=== PATIENT | female | born 1975 | race Caucasian/White ===

== ENCOUNTER 2019-12-25 07:52 | Emergency (ER) | payer SELFPAY ==
[~2019-12-25] VITALS: Ht 160 cm; Wt 54.4 kg
--- NOTE | 2019-12-25 08:15 | NUR ---
ED Nurse Note: Patient presents to ER due to swelling, tenderness and redness over RLE radiating to right thigh after heroin injection. Denies any fever, chills or N/V. Patient awake, alert, oriented x 4. Regular, unlabored breathing noted. Blue dots on the right thigh noted. patient denie any SOB, dyspnea or CP. Placed patient in hospital gown. Bed in lowest position.
[2019-12-25] MEDS ORDERED: Clindamycin 900mg 50 ML IV ONE (08:30)
[2019-12-25] MEDS ORDERED: Ketorolac 30mg Inj IV ONE (08:30)
--- NOTE | 2019-12-25 08:35 | Emergency Room Report ---
History of Present Illness General Chief Complaint: RLE swelling Source: Patient Present Illness HPI Patient is a 44-year-old female past medical history of heroin abuse who presents to the ER complaining of swelling. Patient is unclear as to when it started but states that she does inject into her legs. She denies any fever or chills. Patient complains of pain to the extremity. She denies any chest pain or shortness of breath. She denies any abdominal pain, nausea or vomiting. She denies any other trauma. Allergies: Coded Allergies: No Known Allergies (Unverified , 12/25/19) Patient History Reviewed Nursing Documentation: PMH: Agreed; PSxH: Agreed Review of Systems All Other Systems: negative except mentioned in HPI Physical Exam Sp02 EP Interpretation: reviewed, normal General Appearance: no apparent distress, alert, GCS 15, non-toxic Head: normocephalic, atraumatic Eyes: bilateral eye normal inspection, bilateral eye PERRL ENT: hearing grossly normal, normal pharynx, no angioedema, normal voice Neck: full range of motion, supple/symm/no masses Respiratory: chest non-tender, lungs clear, normal breath sounds, speaking full sentences Cardiovascular #1: regular rate, rhythm, no edema Gastrointestinal: normal bowel sounds, non tender, soft, non-distended, no guarding, no rebound Rectal: deferred Musculoskeletal: other - Right lower extremity diffuse swelling with erythema below the knee and tenderness to palpation bilateral track resendiz on her lower extremities. 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 Due to a high probability of clinically significant, life threatening deterioration, the patient required my highest level of preparedness to intervene emergently and I personally spent this critical care time directly and personally managing the patient. This critical care time included obtaining a history; examining the patient; pulse oximetry; ordering and review of studies; arranging urgent treatment with development of a management plan; evaluation of patient's response to treatment; frequent reassessment; and, discussions with other providers.This critical care time was performed to assess and manage the high probability of imminent, life- threatening deterioration that could result in multi-organ failure. It was exclusive of separately billable procedures and treating other patients and teaching time. Please see MDM section and the rest of the note for further information on patient assessment and treatment. Medical Decision Making Diagnostic Impression: Primary Impression: IVDU (intravenous drug user) Additional Impressions: Cellulitis Anemia ER Course Patient given IV fluids. Patient started on IV clindamycin. Patient's ultrasound demonstrates no evidence for DVT. CT of the leg demonstrates some subcutaneous gas could be from injection site or abscess. Patient transfused 1 unit of packed red blood cells. Patient is refusing admission. She is signing out AMA. I will discharge her with a prescription for Bactrim and Keflex. The patient is of adult age and has sound mind with no evidence of altered mental status suggesting metabolic or infections etiologies. I explained in layman's terms the risk of leaving against medical advise including and significant comorbidity. The patient was given reasonable options. This was explained in front of the patient and the bedside nurse BREN Avila. The AMA for was signed and witnessed by a nurse and the patient. EKG Diagnostic Results Troponin ordered: No - Ordered for possible sepsis EKG Time: 08:38 EP Interpretation: Ela Renner MD Rate: normal - 78 bpm Rhythm: NSR ST Segments: no acute changes ASA given to the pt in ED: No Chest X-Ray Diagnostic Results Chest X-Ray Diagnostic Results : Chest X-Ray Ordered: Yes # of Views/Limited/Complete: 1 View Indication: Other - Possible sepsis EP Interpretation: Yes Interpretation: no consolidation, no effusion, no pneumothorax, no acute cardiopulmonary disease Impression: No acute disease Electronically Signed by: Ela Renner MD Disposition: AGAINST MEDICAL ADVICE Condition: Unknown Scripts Cephalexin* (KEFLEX*) 500 Mg Capsule 500 MG ORAL EVERY 6 HOURS for 14 Days, CAP Prov: Ela Renner M.D. 12/25/19 Trimethoprim/Sulfamethoxazole 160/800* (BACTRIM DS TABLET*) 1 Each Tablet 1 TAB ORAL Q12H, #28 TAB 0 Refills Prov: Ela Renner M.D. 12/25/19 Referrals: NOT CHOSEN [facility]/,REFERRING (PCP) Additional Instructions: The patient was provided with discharge instructions, notified to follow-up with a primary care doctor and or specialist in the next 24-48 hours, and to return to the ED if they have worsening of their symptoms. Please note that this report is being documented using [employer] technology. This can lead to erroneous entry secondary to incorrect interpretation by the dictating instrument. Ela Renner M.D. Dec 25, 2019 08:35
[2019-12-25] MEDS ORDERED: fentaNYL 100 mcg/2 mL IV ONE (09:15)
[2019-12-25 09:24] LABS: HEMATOCRIT 26.7 % (37.0-47.0); HEMOGLOBIN 7.3 G/DL (12.0-16.0); MEAN CORPUSCULAR VOLUME 72 FL (80-99); PLATELET COUNT 218 K/UL (150-450); RED CELL DISTRIBUTION WIDTH 17.4 % (11.6-14.8); WHITE BLOOD COUNT 4.1 K/UL (4.8-10.8)
[2019-12-25] MEDS ORDERED: Omnipaque 350 100ml vial INJ PRN (09:30)
[2019-12-25 09:44] LABS: ANION GAP 5 mmol/L (5-15); BLOOD UREA NITROGEN 10 mg/dL (7-18); CALCIUM 8.3 MG/DL (8.5-10.1); CARBON DIOXIDE 30 MMOL/L (21-32); CHLORIDE 103 MMOL/L (98-107); CREATININE 0.7 MG/DL (0.55-1.30); POTASSIUM 3.6 MMOL/L (3.5-5.1); SODIUM 138 MMOL/L (136-145)
[2019-12-25 09:48] LABS: ALANINE AMINOTRANSFERASE 33 U/L (12-78); ALBUMIN 3.1 G/DL (3.4-5.0); ALBUMIN/GLOBULIN RATIO 0.6 (1.0-2.7); ALKALINE PHOSPHATASE 223 U/L (46-116); ASPARTATE AMINO TRANSFERASE 34 U/L (15-37); BILIRUBIN,TOTAL 0.5 MG/DL (0.2-1.0)
--- NOTE | 2019-12-25 10:00 | NUR ---
ED Nurse Note: Report given to BREN Avila.
--- NOTE | 2019-12-25 10:20 | Diagnostic Imaging Report ---
Indication:Leg pain and swelling Technique: Grayscale and duplex Doppler imaging of the veins in the right lower extremity performed in real time utilizing compression and augmentation. Comparison: None Findings: Duplex Doppler interrogation of the veins in the right lower extremity is performed from the common femoral vein to the popliteal vein. Normal venous compressibility demonstrated throughout. No thrombus identified. Waveform analysis shows good respiratory phasicity and augmentation. Partially evaluated left common femoral vein is patent. There is mild subcutaneous soft tissue edema. IMPRESSION: No evidence of deep venous thrombosis involving the right lower extremity.
--- NOTE | 2019-12-25 10:21 | Diagnostic Imaging Report ---
Indication: Reason For Exam: PAIN Technique: Single AP view of the chest. Comparison: None. Findings: The heart is mildly enlarged when accounting for projection and technique. There is no focal consolidation, pneumothorax or pleural effusion. Osseous structures demonstrate no acute abnormality. IMPRESSION: 1. No airspace consolidation, pneumothorax, or pleural effusion. 2. Mild cardiomegaly.
--- NOTE | 2019-12-25 10:35 | NUR ---
ED Nurse Note: Pt taken ot CT via alyssa, accompanied by a tech.
[2019-12-25 10:59] VITALS: BP 105/69
--- NOTE | 2019-12-25 11:01 | NUR ---
ED Nurse Note: Pt returned from CT.
--- NOTE | 2019-12-25 11:52 | Diagnostic Imaging Report ---
CT LOWER EXTREMITY WITH CONTRAST INDICATION: Leg swelling, concern for abscess TECHNIQUE: Continuous helical transaxial imaging of the lower extremity was obtained from the pelvis to the mid calf after intravenous contrast administration. Coronal 2-D reformats were also obtained. Automatic Exposure Control was utilized. Total Dose length Product (DLP): [address] Dose Index Volume (CTDIvol): 3.5 mGy COMPARISON: None FINDINGS: Soft tissues: In the posteromedial aspect of the lower extremity just below the knee joint, there is a 2 x 1.9 cm gas and fluid containing collection. There are innumerable superficial soft tissue nodules in the right lower extremity subcutaneous fat, presumably representing focal scarring or injection granulomata. There is moderate predominantly anterior lateral subcutaneous edema, worse below the knee. There is free fluid tracking along the lateral aspect of the soft tissues below the knee. There are enlarged right inguinal lymph nodes. Vasculature: Deep veins are patent. Visualized arteries are unremarkable. Osseous structures: Unremarkable. Pelvis: Partially imaged pelvic viscera is unremarkable. IMPRESSION: 1. Small subcutaneous gas and fluid containing collection in the right infragenicular posteromedial subcutaneous soft tissues which could represent reject injection site versus developing abscess; clinical correlation is recommended. 2. Moderate subcutaneous edema of the right lower extremity. 3. Right inguinal lymphadenopathy, presumably reactive. The CT scanner at [facility] is accredited by the [employer] and the scans are performed using protocols designed to limit radiation exposure to as low as reasonably achievable to attain images of sufficient resolution adequate for diagnostic evaluation.
[2019-12-25] MEDS ORDERED: CEPHALEXIN500 MG ORAL (11:59)
[2019-12-25] MEDS ORDERED: BACTRIM DS TAB1 EAC1 ORAL (11:59)
--- NOTE | 2019-12-25 12:08 | NUR ---
ED Nurse Note: Blood picked up from blood bank.
[2019-12-25 12:15] VITALS: BP 112/65
--- NOTE | 2019-12-25 12:15 | NUR ---
ED Nurse Note: Blood transfusion started, verified blood product with another RN.
[2019-12-25 14:20] VITALS: BP 119/69
--- NOTE | 2019-12-25 14:20 | NUR ---
ED Nurse Note: Blood transfusion done. No ASE noted. Blood tubings returned to blood bank.
[2019-12-25 14:27] VITALS: BP 119/69
--- NOTE | 2019-12-25 14:27 | NUR ---
ED Nurse Note: Pt cleared by ERMD for discharge. DC instructions/prescription was given and explained to pt and verbalized understanding of teachings. All medical deviecs such as ID band and IV line removed. Pt is AAO x4, ambulatory and left with all personal belongings. P/u by her boyfriend.
== END 2019-12-25 14:27 | disposition left against medical advice (07) ==
LOC: EMR 08:15
DX: L03.115 Cellulitis of right lower limb (principal); D64.9 Anemia, unspecified
CPT/HCPCS: 36415; 71045; 73701; 80053; 80307; 81025; 83605; 83735; 85007; 85025; 85610; 85730; 86850; 86900; 86901; 86920; 87040; 93005; 93971; 96361; 96365; 96375; 99291; J1885; J3010; J7030; P9016; Q9965; S0077; 36430